=== PATIENT | male | born 1970 | race American Indian/Alaskan Native ===

== ENCOUNTER 2016-12-19 00:46 | Emergency (ER) | payer OTHER ==
[2016-12-19 01:07] VITALS: TEMP 99.8
[2016-12-19 01:54] LABS: BASO # 0.01 K/mm3 (0.0-2.0); BASO % 0.3 % (0.0-3.0); EOS % 0.8 % (1.5-5.0); GRAN % 58.9 % (50.0-68.0); HEMOGLOBIN 12.1 gm/dL (14.0-18.0); LYMPH # 1.1 (1.2-3.4); LYMPH % 30.3 % (22.0-35.0); MEAN CELL VOLUME 89.6 fL (80.0-105.0); MEAN CORPUSCULAR HGB CONC 33.4 g/dl (31.0-37.0); MEAN PLATELET VOLUME 9.5 fl (7.0-11.0); MONO # 0.4 (0.1-0.6); MONO % 9.7 % (1.0-6.0); PLATELET COUNT 224 10^3/uL (120.0-450.0); RBC 4.04 10^6/uL (3.5-6.1); RED CELL DISTRIBUTION WIDTH 13.5 % (11.5-14.5); WHITE BLOOD COUNT 3.7 10^3/ul (4.5-11.0)
[2016-12-19 02:00] LABS: ALB/GLOB RATIO 1.2 (1.1-1.8); ALBUMIN 4.2 g/dL (3.0-4.8); ALT/SGPT 49 U/L (7-56); AST/SGOT 38 U/L (15-59); BLOOD UREA NITROGEN 17 mg/dL (7-21); CALCIUM 9.3 mg/dL (8.4-10.5); GFR AFRICAN-AMERICAN > 60; GFR NON-AFRICAN AMERICAN > 60
[2016-12-19 02:16] LABS: CK-MB 2.1 ng/mL (0.0-3.6)
[2016-12-19 02:32] LABS: TROPONIN I < 0.01 ng/mL
[2016-12-19 02:58] LABS: URINE BILIRUBIN NEGATIVE (NEGATIVE); URINE BLOOD TRACE-INTACT (NEGATIVE); URINE GLUCOSE (UA) NEGATIVE (NEGATIVE); URINE LEUKOCYTE ESTERASE NEGATIVE Leu/uL (NEGATIVE); URINE NITRATE NEGATIVE (NEGATIVE); URINE PROTEIN TRACE mg/dL (<30 mg/dL)
[2016-12-19 03:04] LABS: URINE COLOR YELLOW (YELLOW)
[2016-12-19 03:05] LABS: URINE APPEARANCE CLEAR (CLEAR)
[2016-12-19 03:13] LABS: URINE EPITHELIAL CELLS 0 - 2 /hpf (0-5); URINE RBC 0 - 2 /hpf (0-2); URINE WBC 0 - 2 /hpf (0-6)
[2016-12-19 03:34] VITALS: RESP 18
--- NOTE | 2016-12-19 03:56 | CT ---
EXAM: CT Angiography Chest Without and With Intravenous Contrast CLINICAL HISTORY: 45 years old, male; Signs and symptoms; Shortness of breath; Additional info: R/O pe TECHNIQUE: Axial computed tomographic angiography images of the chest without and with intravenous contrast using pulmonary embolism protocol. This CT exam was performed using one or more of the following dose reduction techniques: automated exposure control, adjustment of the mA and/or kV according to patient size, and/or use of iterative reconstruction technique. MIP reconstructed images were created and reviewed. Coronal and sagittal reformatted images were created and reviewed. CONTRAST: 150 mL of omnipaque administered intravenously. COMPARISON: DX - CHEST PORTABLE 12/19/2016 1:43:56 AM FINDINGS: Limitations: Motion artifact - mild. Suboptimal timing of bolus. Pulmonary arteries: No definite pulmonary embolism. Aorta: No aneurysm. No dissection. Lungs: No consolidation. Pleural space: No significant effusion. No pneumothorax. Heart: Mild cardiomegaly. No significant pericardial effusion. Bones/joints: No acute fracture. No dislocation. Soft tissues: Unremarkable. Lymph nodes: No pathologically enlarged lymph nodes. IMPRESSION: 1. No definite CT evidence of pulmonary embolism. 2. Incidental/non-acute findings are described above.
[2016-12-19 04:46] VITALS: BP 140/98; PULSE 70; O2SAT 98
--- NOTE | 2016-12-19 05:53 | ED PDOC ---
Arrival/HPI - General Chief Complaint: Chest Pain Time Seen by Provider: 12/19/16 00:59 Historian: Patient - History of Present Illness Narrative History of Present Illness (Text): 12/19/16 00:25 45 year old male complaining of sharp chest pain and shortness of breath today and swelling to his lower extremity for 2 days. Patient states that his chest pain is sharp in nature and non-radiating. Patient denies any history of DVT, trauma, fever, cough, abdominal pain, nausea, vomiting, prolonged immobilization , or any other complaint at this time. Time/Duration: 24 hours (sharp chest pain and shortness of breath), < week ( Lower extremity swelling) Symptom Onset: Gradual Symptom Course: Unchanged Severity Level: Mild Activities at Onset: Rest Context: Home Past Medical History - Provider Review Nursing Documentation Reviewed: Yes - Infectious Disease Hx of Infectious Diseases: None - Cardiac Hx Cardiac Disorders: Yes Hx Hypertension: Yes - Pulmonary Hx Bronchitis: Yes - Neurological Hx Neurological Disorder: No - HEENT Hx HEENT Disorder: No - Renal Hx Renal Disorder: No - Endocrine/Metabolic Hx Endocrine Disorders: No - Hematological/Oncological Hx Blood Disorders: No - Integumentary Hx Dermatological Disorder: No - Musculoskeletal/Rheumatological Hx Arthritis: Yes (Left Hip) - Gastrointestinal Hx Gastrointestinal Disorders: No - Genitourinary/Gynecological Hx Genitourinary Disorders: No - Psychiatric Hx Psychophysiologic Disorder: No Hx Substance Use: No - Surgical History Hx Joint Replacement: Yes (Right hip) - Anesthesia Hx Anesthesia: Yes Hx Anesthesia Reactions: No Hx Malignant Hyperthermia: No Family/Social History - Physician Review Nursing Documentation Reviewed: Yes Family/Social History: No Known Family HX Smoking Status: Current Some Days Smoker Hx Alcohol Use: No Hx Substance Use: No Allergies/Home Meds Allergies/Adverse Reactions: Allergies No Known Allergies Allergy (Verified 12/19/16 01:08) Home Medications: Home Meds Medication Instructions Recorded Confirmed Acetaminophen [Tylenol 325mg tab] 325 mg PO Q6 PRN 12/19/16 12/19/16 Labetalol Hydrochloride [Normodyne] 300 mg PO BID 12/19/16 12/19/16 amLODIPine [Norvasc] 5 mg PO DAILY 12/19/16 12/19/16 Review of Systems - Physician Review All systems were reviewed & negative as marked: Yes - Review of Systems Constitutional: absent: Fevers, Night Sweats Eyes: absent: Vision Changes ENT: absent: Hearing Changes Respiratory: SOB Cardiovascular: Chest Pain Gastrointestinal: absent: Abdominal Pain Genitourinary Male: absent: Dysuria, Frequency Musculoskeletal: Other (Lower extremity swelling). absent: Arthralgias, Back Pain Skin: absent: Rash, Pruritis Neurological: absent: Headache, Dizziness Endocrine: absent: Diaphoresis, Polyuria Hemo/Lymphatic: absent: Adenopathy, Easy Bleeding Psychiatric: absent: Anxiety, Depression Physical Exam Vital Signs Reviewed: Yes Vital Signs Temp Pulse Resp BP Pulse Ox 12/19/16 04:45 70 140/98 H 98 12/19/16 03:34 78 18 157/99 H 100 12/19/16 00:52 99.8 F H 92 H 20 192/99 H 98 Temperature: Febrile Blood Pressure: Hypertensive Pulse: Tachycardic Respiratory Rate: Normal Appearance: Positive for: Well-Appearing, Non-Toxic, Comfortable - Systems Exam Head: Present: Atraumatic, Normocephalic Pupils: Present: PERRL Extroacular Muscles: Present: EOMI Conjunctiva: Present: Normal Mouth: Present: Moist Mucous Membranes Neck: Present: Normal Range of Motion Respiratory/Chest: Present: Clear to Auscultation, Good Air Exchange. No: Respiratory Distress, Accessory Muscle Use Cardiovascular: Present: Regular Rate and Rhythm, Normal S1, S2. No: Murmurs Abdomen: Present: Normal Bowel Sounds. No: Tenderness, Distention, Peritoneal Signs Back: Present: Normal Inspection Upper Extremity: Present: Normal Inspection. No: Cyanosis, Edema Lower Extremity: Present: CALF TENDERNESS (to left lower extremity with mild erythema) Neurological: Present: GCS=15, CN II-XII Intact, Speech Normal Skin: Present: Warm, Dry, Normal Color. No: Rashes Psychiatric: Present: Alert, Oriented x 3, Normal Insight, Normal Concentration Medical Decision Making ED Course and Treatment: 12/19/16 05:55 Impression: 45 year old male complaining of sharp chest pain and shortness of breath today and left LE swelling for 2 days. Plan: -- EKG -- Chest Portable -- LE Ultrasound -- Labs -- Keflex and Toradol -- Reassess and Disposition Progress Notes: EKG: ordered, reviewed, and independently interpreted the EKG. Rate: 92 BPM Rhythm: Sinus Rhythm Interpretation: Normal axis, normal intervals. 12/19/16 05:59 - Lab Interpretations Lab Results: 12/19/16 01:39 12/19/16 01:39 Lab Results 12/19/16 02:42: Urine Color Yellow, Urine Appearance Clear, Urine pH 6.0, Ur Specific Neely 1.025, Urine Protein Trace H, Urine Glucose (UA) Negative, Urine Ketones Negative, Urine Blood Trace-intact H, Urine Nitrate Negative, Urine Bilirubin Negative, Urine Urobilinogen 1.0 H, Ur Leukocyte Esterase Negative, Urine RBC 0 - 2, Urine WBC 0 - 2, Ur Epithelial Cells 0 - 2 12/19/16 01:39: Sodium 138, Potassium 3.7, Chloride 102, Carbon Dioxide 28, Anion Gap 12, BUN 17, Creatinine 0.9, Est GFR ( Amer) > 60, Est GFR (Non- Af Amer) > 60, Random Glucose 94, Calcium 9.3, Magnesium 2.0, Total Bilirubin 0.4, AST 38, ALT 49, Alkaline Phosphatase 66, Lactate Dehydrogenase 470, Total Creatine Kinase 288 H, CK-MB (CK-2) 2.1, CK-MB (CK-2) % Cancelled, Troponin I < 0.01, Total Protein 7.8, Albumin 4.2, Globulin 3.6, Albumin/Globulin Ratio 1.2 12/19/16 01:39: D-Dimer, Quantitative 1.87 H 12/19/16 01:39: WBC 3.7 L, RBC 4.04, Hgb 12.1 L, Hct 36.2 L, MCV 89.6, MCH 30.0 , MCHC 33.4, RDW 13.5, Plt Count 224, MPV 9.5, Gran % 58.9, Lymph % (Auto) 30.3 , Riley % (Auto) 9.7 H, Eos % (Auto) 0.8 L, Baso % (Auto) 0.3, Gran # 2.20, Lymph # 1.1 L, Riley # 0.4, Eos # 0.0, Baso # 0.01 I have reviewed the lab results: Yes - RAD Interpretation Radiology Orders: 12/19/16 01:22 CHEST PORTABLE [RAD] Stat 12/19/16 02:18 DUPLEX LOWER EXTRM VEIN LEFT [US] Stat 12/19/16 02:19 ANGIO CHEST PE PROTOCOL [CT] Stat - Medication Orders Current Medication Orders: Discontinued Medications Cephalexin Monohydrate (Keflex) 500 mg PO STAT STA PRN Reason: Protocol Stop: 12/19/16 04:14 Last Admin: 12/19/16 04:45 Dose: 500 mg Iohexol (Omnipaque 350 150 Ml) Confirm Administered Dose 150 ml .ROUTE .STK-MED ONE Stop: 12/19/16 02:32 Ketorolac Tromethamine (Toradol) 30 mg IVP STAT STA Stop: 12/19/16 04:14 Last Admin: 12/19/16 04:37 Dose: 30 mg Disposition/Present on Arrival - Present on Arrival Any Indicators Present on Arrival: No History of DVT/PE: No History of Uncontrolled Diabetes: No Urinary Catheter: No History of Decub. Ulcer: No History Surgical Site Infection Following: Orthopedic Procedures - Disposition Have Diagnosis and Disposition been Completed?: Yes Diagnosis: Cellulitis Disposition: HOME/ ROUTINE Disposition Time: 04:00 Condition: GOOD Discharge Instructions (ExitCare): Cellulitis (ED) Additional Instructions: Thank you for letting us take care of you today. Your provider was Dr. Espinosa. You were treated for cellulitis. The emergency medical care you received today was directed at your acute symptoms. If you were prescribed any medication, please fill it and take as directed. It may take several days for your symptoms to resolve. Return to the Emergency Department if your symptoms worsen, do not improve, or if you have any other problems. Please contact your doctor or call one of the physicians/clinics you have been referred to that are listed on the Patient Visit Information form that is included in your discharge packet. Bring any paperwork you were given at discharge with you along with any medications you are taking to your follow up visit. Our treatment cannot replace ongoing medical care by a primary care provider (PCP) outside of the emergency department. Thank you for allowing the [facility] team to be part of your care today. Follow up with your doctor in 2-3 days for re-evaluation. Prescriptions: Cephalexin [Keflex] 500 mg PO BID #14 capsule Referrals: Dominic Reyes, [Family Provider] - Follow up with primary
--- NOTE | 2016-12-19 08:53 | RAD ---
HISTORY: chest pain COMPARISON: No prior similar study available for comparison FINDINGS: LUNGS: No active pulmonary disease. PLEURA: No significant pleural effusion identified, no pneumothorax apparent. CARDIOVASCULAR: Normal. OSSEOUS STRUCTURES: No significant abnormalities. VISUALIZED UPPER ABDOMEN: Normal. OTHER FINDINGS: None. IMPRESSION: No active disease.
--- NOTE | 2016-12-19 11:54 | US ---
PROCEDURE: Left lower extremity venous US HISTORY: Leg pain and swelling. Evaluate for DVT. PHYSICIAN(S): Rony Long MD. TECHNIQUE: Duplex sonography and color-flow Doppler with graded compression were used to evaluate the deep venous system of the left lower extremity. FINDINGS: The visualized deep venous system of the left lower extremity is sonographically normal and compressible. Normal wave forms and augmentation are seen. There is no sonographic evidence for deep venous thrombosis in the visualized segments of the left lower extremity. IMPRESSION: 1. No sonographic evidence for deep venous thrombosis in the visualized segments of the left lower extremity.
--- NOTE | 2016-12-19 13:26 | CARD ---
APPROVED REPORT EKG Measurement Heart [id number] <Conclusion> Normal sinus rhythm Possible Left atrial enlargement Small inferior q waves LVH by voltage
== END 2016-12-19 04:45 | disposition home or self-care (01) ==
LOC: ED 00:46
DX: L03.116 Cellulitis of left lower limb (principal); I10 Essential (primary) hypertension; Z72.0 Tobacco use
CPT/HCPCS: 71010; 71275; 80053; 81001; 82550; 82553; 83615; 83735; 84484; 85025; 85378; 93005; 93971; 96374; 99283; J1885; Q9967

== ENCOUNTER 2017-10-27 23:54 | Emergency (ER) | payer OTHER ==
[2017-10-28 00:09] VITALS: RESP 18; TEMP 98.2
[2017-10-28] MEDS ORDERED: Methocarbamol 500 MG Tab PO STA (00:47)
--- NOTE | 2017-10-28 00:57 | ED PDOC ---
Arrival/HPI <Dale Mir - Last Filed: 10/28/17 01:58> - General Historian: Patient - History of Present Illness Time/Duration: > week Symptom Onset: Sudden, Gradual Symptom Course: Unchanged, Worsening Quality: Stabbing, Burning Severity Level: 5 Activities at Onset: Rest Context: Home <Carolina Escobedo - Last Filed: 10/28/17 11:16> - General Chief Complaint: Upper Extremity Problem/Injury Time Seen by Provider: 10/28/17 00:30 - History of Present Illness Narrative History of Present Illness (Text): 10/28/17 00:50 Pt is a 46 yr old male with no significant PMH who present to the Emergency department complaining of right scapular pain for the last week. He reports that it began shortly after picking up his 3 yr old daughter and falling asleep in a chair with his arms crossed in front. Pt states that he worried that it might be heart related and was assessed by urgent care center in [facility] as well as [facility] who advised to take naproxen and cyclobenzaprine. Pt continues to have 'stabbing and sharp' pain in the right scapular area that travels to the deltoid, chest and down the arm. currently has some altered sensation in the finger of the right hand but denies loss of motor function. He also denies chest pain, shortness of breath, fever, headache, nausea, vomiting, diarrhea or trauma. (Carolina Escobedo) Past Medical History - Provider Review Nursing Documentation Reviewed: Yes - Travel History Have you recently traveled outside [place] w/in the past 3 mons?: No - Infectious Disease Hx of Infectious Diseases: None - Cardiac Hx Cardiac Disorders: Yes Hx Hypertension: Yes - Pulmonary Hx Bronchitis: Yes - Neurological Hx Neurological Disorder: No - HEENT Hx HEENT Disorder: No - Renal Hx Renal Disorder: No - Endocrine/Metabolic Hx Endocrine Disorders: No - Hematological/Oncological Hx Blood Disorders: No - Integumentary Hx Dermatological Disorder: No - Musculoskeletal/Rheumatological Hx Arthritis: Yes (Left Hip) - Gastrointestinal Hx Gastrointestinal Disorders: No - Genitourinary/Gynecological Hx Genitourinary Disorders: No - Psychiatric Hx Psychophysiologic Disorder: No Hx Substance Use: No - Surgical History Hx Joint Replacement: Yes (Right hip) - Anesthesia Hx Anesthesia: Yes Hx Anesthesia Reactions: No Hx Malignant Hyperthermia: No <Carolina Escobedo - Last Filed: 10/28/17 11:16> Family/Social History - Physician Review Nursing Documentation Reviewed: Yes Family/Social History: Unknown Family HX Smoking Status: Current Some Days Smoker Hx Alcohol Use: No Hx Substance Use: No <Carolina Escobedo - Last Filed: 10/28/17 11:16> Allergies/Home Meds <Dale Mir - Last Filed: 10/28/17 01:58> <Carolina Escobedo - Last Filed: 10/28/17 11:16> Allergies/Adverse Reactions: Allergies No Known Allergies Allergy (Verified 12/19/16 01:08) Home Medications: Home Meds Medication Instructions Recorded Confirmed Acetaminophen [Tylenol 325mg tab] 325 mg PO Q6 PRN 12/19/16 12/19/16 Labetalol Hydrochloride [Normodyne] 300 mg PO BID 12/19/16 12/19/16 amLODIPine [Norvasc] 5 mg PO DAILY 12/19/16 12/19/16 Review of Systems - Review of Systems Constitutional: Normal Eyes: Normal ENT: Normal Respiratory: Normal Cardiovascular: Normal Gastrointestinal: Normal Genitourinary Male: Normal Musculoskeletal: Normal, Back Pain (scapular right) Skin: Normal Neurological: Normal. absent: Headache, Dizziness, Focal Weakness, Gait Changes Endocrine: Normal Hemo/Lymphatic: Normal Psychiatric: Normal <Carolina Escobedo - Last Filed: 10/28/17 11:16> Physical Exam Vital Signs Reviewed: Yes Temperature: Afebrile Blood Pressure: Normal Pulse: Regular Respiratory Rate: Normal Appearance: Positive for: Well-Appearing, Non-Toxic, Comfortable Pain Distress: Moderate Mental Status: Positive for: Alert and Oriented X 3 - Systems Exam Head: Present: Atraumatic, Normocephalic Pupils: Present: PERRL Extroacular Muscles: Present: EOMI Conjunctiva: Present: Normal Mouth: Present: Moist Mucous Membranes Neck: Present: Normal Range of Motion Respiratory/Chest: Present: Clear to Auscultation, Good Air Exchange. No: Respiratory Distress, Accessory Muscle Use Cardiovascular: Present: Regular Rate and Rhythm, Normal S1, S2. No: Murmurs Abdomen: No: Tenderness, Distention, Peritoneal Signs Back: Present: Normal Inspection, Other (right scapular and deltoid and pectoralis tenderness). No: CVA Tenderness, Midline Tenderness, Paraspinal Tenderness Upper Extremity: Present: Normal Inspection, Normal ROM, NORMAL PULSES, Neurovascularly Intact, Capillary Refill < 2s, Norm 2-Pt Discrimination. No: Cyanosis, Edema, Tenderness, Swelling, Erythema, Temperature Abnormalties, Deformity Lower Extremity: Present: Normal Inspection, NORMAL PULSES, Normal ROM. No: Edema Neurological: Present: GCS=15, CN II-XII Intact, Speech Normal, Motor Func Grossly Intact, Normal Sensory Function, Normal Cerebellar Funct, Norm Deep Tendon Reflexes, Gait Normal, Normal 2Pt Descrimination Skin: Present: Warm, Dry, Normal Color. No: Rashes Psychiatric: Present: Alert, Oriented x 3, Normal Insight, Normal Concentration <Carolina Escobedo - Last Filed: 10/28/17 11:16> Vital Signs Temp Pulse Resp BP Pulse Ox 10/28/17 01:08 66 18 142/84 100 10/28/17 00:06 98.2 F 98 H 18 153/92 H 99 10/27/17 23:54 68 18 146/84 99 Medical Decision Making <Dale Mir - Last Filed: 10/28/17 01:58> - EKG Interpretation Interpreted by ED Physician: Yes (NSR with a rate of 98) <Carolina Escobedo - Last Filed: 10/28/17 11:16> ED Course and Treatment: 10/28/17 00:59 Impression Pt is a 46 yr old male with no significant PMH who present to the Emergency department complaining of right scapular pain for the last week. On exam, right GH jt ROM decreased due to pain and muscle hypertonicity SILT and motor function intact bilateral; right rhomboid tenderness on palpation Plan ECG Robaxin and Toradol 30 mg IM assess and dispo Progress note Advised pt to take robaxin vs flexeril to reduce long-acting drowsiness; take ibuprofen with food and only as needed; may need PT if pain continues VSS and ambulated well on d/c (Carolina Escobedo) - Medication Orders Current Medication Orders: Discontinued Medications Ketorolac Tromethamine (Toradol) 30 mg IM STAT STA Stop: 10/28/17 00:49 Last Admin: 10/28/17 01:27 Dose: 30 mg MAR Pain Assessment Document 10/28/17 01:27 GARFIELD (Rec: 10/28/17 01:27 GARFIELD [id number]) Pain Reassessment Is this a pain reassessment? No IM Administration Charges Document 10/28/17 01:27 GARFIELD (Rec: 10/28/17 01:27 GARFIELD [id number]) Charges for Administration # of IM Administrations 1 Methocarbamol (Robaxin) 500 mg PO STAT STA Stop: 10/28/17 00:48 Last Admin: 10/28/17 01:27 Dose: 500 mg - PA / [employer] / Resident Statement /DO has reviewed & agrees with the documentation as recorded. <Dale Mir - Last Filed: 10/28/17 01:58> Disposition/Present on Arrival <Dlae Mir - Last Filed: 10/28/17 01:58> - Present on Arrival Any Indicators Present on Arrival: Yes History of DVT/PE: No History of Uncontrolled Diabetes: No Urinary Catheter: No History of Decub. Ulcer: No History Surgical Site Infection Following: Orthopedic Procedures - Disposition Have Diagnosis and Disposition been Completed?: Yes Disposition Time: 01:05 Patient Plan: Discharge <Carolina Escobedo - Last Filed: 10/28/17 11:16> - Disposition Diagnosis: Muscle spasm of back, Rhomboid muscle strain Disposition: HOME/ ROUTINE Condition: STABLE Discharge Instructions (ExitCare): Muscle Strain, Muscle Spasms (DC) Additional Instructions: Jim, thank you for letting us take care of you today. Your provider was BROOKS Escobedo. You were treated for muscular strain and spasm. The emergency medical care you received today was directed at your acute symptoms. If you were prescribed any medication, please fill it and take as directed. It may take several days for your symptoms to resolve. Return to the Emergency Department if your symptoms worsen, do not improve, or if you have any other problems. Please contact the car painter that we have referred you to for extended care Please contact your doctor or call one of the physicians/clinics you have been referred to that are listed on the Patient Visit Information form that is included in your discharge packet. Bring any paperwork you were given at discharge with you along with any medications you are taking to your follow up visit. Our treatment cannot replace ongoing medical care by a primary care provider (PCP) outside of the emergency department. Thank you for allowing the [facility] team to be part of your care today. Prescriptions: Ibuprofen [Motrin Tab] 600 mg PO Q6 PRN 5 Days #20 tab PRN Reason: pain/fever Methocarbamol [Robaxin] 750 mg PO Q8 5 Days #15 tab Referrals: George Heaton MD [Staff Provider] - Follow up with primary Forms: Draft (Montenegrin), WORK NOTE
[2017-10-28 03:18] VITALS: BP 142/84; PULSE 66; O2SAT 100
--- NOTE | 2017-10-28 21:55 | CARD ---
APPROVED REPORT EKG Measurement Heart [id number] <Conclusion> Sinus rhythm with occasional premature ventricular complexes Possible Left atrial enlargement Borderline ECG
== END 2017-10-28 01:08 | disposition home or self-care (01) ==
LOC: ED 23:54
DX: S29.012A Strain of muscle and tendon of back wall of thorax, initial encounter (principal); X58.XXXA Exposure to other specified factors, initial encounter; I10 Essential (primary) hypertension; F17.200 Nicotine dependence, unspecified, uncomplicated; M62.830 Muscle spasm of back
CPT/HCPCS: 93005; 96372; 99283; J1885